=== PATIENT | male | born 1975 | race Two or more races ===

== ENCOUNTER → 2024-12-14 07:18 | Outpatient (REF) | payer BC, SELFPAY | LOC: HWRAD 07:18 | PROVIDERS: ATTENDING PHYSICIAN Chiropractor; FAMILY PHYSICIAN Nurse Practitioner Adult Health | DX: M54.2 Cervicalgia (principal); M54.6 Pain in thoracic spine | CPT/HCPCS: 72050; 72072 ==

== ENCOUNTER → 2025-02-11 08:58 | Outpatient (REF) | payer BC, SELFPAY | LOC: HWRAD 08:58 | PROVIDERS: ATTENDING PHYSICIAN Chiropractor; FAMILY PHYSICIAN Nurse Practitioner Adult Health | DX: M53.2X7 Spinal instabilities, lumbosacral region (principal); M25.552 Pain in left hip; R10.20 Pelvic and perineal pain unspecified side | CPT/HCPCS: 72110; 73502 ==